=== PATIENT | male | born 1955 ===

== ENCOUNTER 2017-02-15 11:27 | Emergency (ER) | payer BC ==
--- NOTE | 2017-02-15 11:42 | UC ---
Back Pain HPI - HPI Summary HPI Summary: Pt present with c/o gradual onset of low back pain. Pt has a history of chronic back pain that has been in "remission" over the last year. Pt states he was stacking wood pellet bags 2 weeks ago and pain began ~ 1 -2 days after lifting heavy bags. - History of Current Complaint Hx Obtained From: Patient Onset/Duration: Gradual Onset, Lasting Weeks, Still Present, Worse Since - onset Timing: Constant Severity Initially: Mild Severity Currently: Moderate Back Pain: Is Diffuse - low back Character: Dull, Aching, Spasmodic, Stiffness Aggravating: Movement Alleviating: Rest, Position Associated Signs And Symptoms: Positive: Negative - Risk Factors AAA Risk Factors: Hypertension TAD Risk Factors: Hypertension Cauda Equina Risk Factors: Negative Epidural Abscess Risk Factors: Negative <Shelby Martinez NP - Last Filed: 02/15/17 12:44> <Tiffanie Torres - Last Filed: 02/15/17 12:57> - History of Current Complaint Chief Complaint: UCBackPain Stated Complaint: BACK PAIN Time Seen by Provider: 02/15/17 11:41 - Allergies/Home Medications Allergies/Adverse Reactions: Allergies Allergy/AdvReac Type Severity Reaction Status Date / Time Amoxicillin [From Augmentin] Allergy Tinnitus Verified 02/15/17 11:34 Clavulanic Acid Allergy Tinnitus Verified 02/15/17 11:34 [From Augmentin] Home Medications: Home Medications Allopurinol TAB* [Zyloprim 300 MG TAB*] 300 mg PO DAILY 02/15/17 [History Confirmed 02/15/17] Losartan TAB* [Cozaar TAB*] 25 mg PO DAILY 02/15/17 [History Confirmed 02/15/17] Lovastatin [Altoprev] 20 mg PO DAILY 02/15/17 [History Confirmed 02/15/17] Primidone TAB(*) [Mysoline TAB(*)] 50 mg PO TID 02/15/17 [History Confirmed 12/25] amLODIPine TAB* [Norvasc 5 mg TAB*] 5 mg PO DAILY 02/15/17 [History Confirmed ] glipiZIDE TAB* [Glucotrol TAB*] 5 mg PO BID 02/15/17 [History Confirmed 02/15/17 ] PMH/Surg Hx/FS Hx/Imm Hx Previously Healthy: Yes Cardiovascular History: Hypertension - Surgical History Surgical History: Yes Surgery Procedure, Year, and Place: nasal surgery after fx - Family History Known Family History: Positive: Cardiac Disease - Social History Occupation: Disabled, Retired Lives: With Family Alcohol Use: None Substance Use Type: None Smoking Status (MU): Former Smoker Type: Cigarettes Have You Smoked in the Last Year: No When Did the Patient Quit Smoking/Using Tobacco: 1998 <Shelby Martinez NP Last Filed: 02/15/17 12:44> Review of Systems Constitutional: Negative Skin: Negative Eyes: Negative ENT: Negative Respiratory: Negative Cardiovascular: Negative Gastrointestinal: Negative Genitourinary: Negative Motor: Decreased ROM - low back Neurovascular: Negative Musculoskeletal: Decreased ROM - low back, Myalgia - low back Neurological: Negative Psychological: Negative All Other Systems Reviewed And Are Negative: Yes <Shelby Martinez NP Filed: 02/15/17 12:44> Physical Exam Triage Information Reviewed: Yes Appearance: Pain Distress Vital Signs: Initial Vital Signs Temp 98.6 F 02/15/17 11:37 Pulse 80 02/15/17 11:37 Resp 02/15/17 11:37 BP 150/100 02/15/17 11:37 Pulse Ox 99 02/15/17 11:37 Vital Signs Reviewed: Yes Eye Exam: Normal Neck exam: Normal Respiratory Exam: Normal Cardiovascular Exam: Normal Musculoskeletal Exam: Other Musculoskeletal: Positive: Strength Limited @ - low back, ROM Limited @ - low back, Other: - low back pain, "flat low back" Neurological Exam: Normal Psychological Exam: Normal Skin Exam: Normal <Shelby Martinez NP Last Filed: 02/15/17 12:44> Vital Signs: Initial Vital Signs Temp 98.6 F 02/15/17 11:37 Pulse 80 02/15/17 11:37 Resp 16 02/15/17 11:37 BP 150/100 02/15/17 11:37 Pulse Ox 99 02/15/17 11:37 <Tiffanie Torres Last Filed: 02/15/17 12:57> Back Pain Course/Dx - Differential Dx/Diagnosis Differential Diagnosis/HQI/PQRI: Herniated Disc, Strain Provider Diagnoses: low back strain. low back spasm <Shelby Martinez NP Filed: 02/15/17 12:44> Discharge <Shelby Martinez NP - Last Filed: 02/15/17 12:44> <Tiffanie Torres - Last Filed: 02/15/17 12:57> - Discharge Plan Condition: Stable Disposition: HOME Prescriptions: Cyclobenzaprine TAB* [Flexeril 10 MG TAB*] 10 mg PO TID PRN #15 tab PRN Reason: Pain Indomethacin CAP* [Indocin CAP*] 50 mg PO TID PRN #30 cap PRN Reason: Pain Patient Education Materials: Acute Low Back Pain (ED), Lower Back Exercises (ED ) Referrals: Sukhwinder Rodríguez MD [Primary Care Provider] - If Needed (Please follow up with your PCP if needed or return to clinic. If symptoms do not improve, please seek care at your closest health care facility. ) Additional Instructions: Dr. Kishan Cannon [facility] [address] [place] [id number] [place] [facility] [address] [place] [phone] [place] [facility] [address] [facility] [address] [place] [address] The provider listed above is a back pain specialist. Attestation Statement User Type: Provider - I was available for consult. This patient was seen by the T[facility]. The patient was not presented to, seen by, or examined by me. -Gualberto <Tiffanie Torres - Last Filed: 02/15/17 12:57>
[2017-02-15] MEDS ORDERED: Ketorolac INJ* 60 MG/2 ML VIAL IM ONE (11:52)
[2017-02-15] MEDS ORDERED: Cyclobenzaprine TAB* 10 MG PO ONE (11:53)
[2017-02-15 12:25] VITALS: BP 140/89
== END 2017-02-15 12:25 | disposition home or self-care (01) ==
LOC: UCCORT 11:27
DX: S39.012A Strain of muscle, fascia and tendon of lower back, initial encounter (principal); Z88.3 Allergy status to other anti-infective agents; Z79.84 Long term (current) use of oral hypoglycemic drugs; I10 Essential (primary) hypertension; Z87.891 Personal history of nicotine dependence; X50.0XXA Overexertion from strenuous movement or load, initial encounter
CPT/HCPCS: 96372; 99212; A9270-GY; G0463; J1885